=== PATIENT | male | born 1980 | race Caucasian/White ===

== ENCOUNTER 2020-08-06 17:12 | Outpatient (REF) | payer BC, SELFPAY | END 2020-08-06 17:13 | disposition home or self-care (01) | LOC: HO.LAB 17:12 | PROVIDERS: Visit Provider Internal Medicine | DX: Z20.822 Contact with and (suspected) exposure to COVID-19 (principal) | CPT/HCPCS: 36415; C9803; U0003 ==

== ENCOUNTER 2021-01-01 20:57 | Emergency (ER) | payer BC, SELFPAY ==
--- NOTE | ~2021-01-01 | XR_ITS ---
Indication: Pain, swelling EXAMINATION: Left foot, left ankle. Findings; 3 views left foot. There is flexion at the level of the fifth MTP joint which limits evaluation here. Subluxation at the MTP joint of course cannot be excluded given the appearance. No underlying fracture is identified. 2 detail views of the left ankle demonstrate significant spurring at the insertion of the Achilles. Mild spurring at the insertion of the plantar aponeuroses. There is no fracture or dislocation at the level of the ankle joint. The mortise is grossly intact. XR/XR foot LT min 3V IMPRESSION: Flexion at the level of the fifth MTP joint. An element of subluxation here cannot be excluded. Correlation needs to be made clinically. No obvious fracture. No fracture or dislocation of level the ankle. Significant spurring at the insertion of the Achilles.
--- NOTE | ~2021-01-01 | XR_ITS ---
Indication: Pain, swelling EXAMINATION: Left foot, left ankle. Findings; 3 views left foot. There is flexion at the level of the fifth MTP joint which limits evaluation here. Subluxation at the MTP joint of course cannot be excluded given the appearance. No underlying fracture is identified. 2 detail views of the left ankle demonstrate significant spurring at the insertion of the Achilles. Mild spurring at the insertion of the plantar aponeuroses. There is no fracture or dislocation at the level of the ankle joint. The mortise is grossly intact. XR/XR ankle LT min 3V IMPRESSION: Flexion at the level of the fifth MTP joint. An element of subluxation here cannot be excluded. Correlation needs to be made clinically. No obvious fracture. No fracture or dislocation of level the ankle. Significant spurring at the insertion of the Achilles.
[2021-01-01 21:23] VITALS: BP 122/77; PULSE 79; RESP 18; TEMP 36.6; O2SAT 99; BMI 28.5
--- NOTE | 2021-01-01 23:02 | ED_ITS ---
HPI - Extremity Injury (Lower) General Chief Complaint: General Medical Stated Complaint: Heel pain Time Seen by Provider: 01/01/21 22:59 Source: patient Mode of arrival: ambulatory Limitations: no limitations History of Present Illness HPI Narrative: Patient complaining of left ankle pain and swelling for last 1 mo nth does not know any injury lately becoming more ecchymotic and more painful Related Data Previous Rx's Medication Instructions Recorded ibuprofen 600 mg PO Q6H PRN #20 tab 01/01/21 Allergies Allergy/AdvReac Type Severity Reaction Status Date / Time No Known Allergies Allergy Verified 01/01/21 21:23 Review of Systems Review of Systems: Yes all other systems are reviewed and are negative [facility] Past Medical History Medical History No active medical problems Social History Social History Advance Directives: No Advance Directives Information Provided: No Physical Exam Vital Signs: Vital Signs: Last Vital Signs Temp 97.9 F 01/01/21 21:23 Pulse 79 01/01/21 21:23 Resp 18 01/01/21 21:23 BP 122/77 01/01/21 21:23 Pulse Ox 99 01/01/21 21:23 Body Mass Index 28.5 Extrem: Ankle/foot/toe images: 1. Soft tissue swelling with ecchymosis tender to touch good range of movement no deformity MDM - Extremity Injury (Lower) MDM Narrative Medical decision making narrative: Patient clinically left ankle sprain likely happen at work x-ray negative David wrap applied ibuprofen was given Discharge Plan Discharge Clinical Impression: Left ankle sprain Patient Disposition: Home, Self-Care Instructions: Ankle Sprain (ED) Additional Instructions: Rest to left ankle do not stand for long hours Apply David wrap take ibuprofen for pain Prescriptions: New ibuprofen 600 mg tablet 600 mg PO Q6H PRN (Reason: pain) Qty: 20 RF: 0 Stand Alone Forms: Work/School Release Interventions: ED Discharge Assessment Last Done: 01/01/21 23:29 Discharge Date/Time: 01/01/21 23:42
[2021-01-01] MEDS: Ibuprofen 600 MG TABLET PO (23:29)
== END 2021-01-01 23:42 | disposition home or self-care (01) ==
PROVIDERS: Emergency Provider Internal Medicine; PCP Internal Medicine Geriatric Medicine
DX: S93.402A Sprain of unspecified ligament of left ankle, initial encounter (principal); X58.XXXA Exposure to other specified factors, initial encounter; Y93.9 Activity, unspecified; Y92.9 Unspecified place or not applicable; Y99.9 Unspecified external cause status
CPT/HCPCS: 73610; 73630; 99283; 99284

== ENCOUNTER 2021-01-06 20:57 | Inpatient (IN) | payer BC, SELFPAY ==
--- NOTE | ~2021-01-06 | US_ITS ---
EXAMINATION: PENILE ULTRASOUND. CLINICAL INFORMATION: Bruising of the penis. COMPARISON: None TECHNIQUE: Grayscale and color Doppler exam performed. FINDINGS: Defects seen on the left side of the penile shaft with complex solid masslike area extruded through the defect measuring 3.1 x 1.8 x 2.2 cm. This segment of tissue is avascular on Doppler. US/US penile IMPRESSION: Defect left penile shaft with extruded soft tissue there is a vascular through the defect.
[2021-01-06 21:03] VITALS: BP 131/86; PULSE 78; RESP 16; TEMP 36.4; O2SAT 99; BMI 28.5
[2021-01-06 21:30] LABS: Appearance Urine CLEAR; Color Urine YELLOW; Glucose Urine UA NEG (NEG); Leukocyte Esterase Urine NEG (NEG); Nitrite Urine NEG (NEG); Specific Gravity - Urine >= 1.030 (1.005-1.025); Urine Blood TRACE (NEG); Urine Ketones NEG (NEG); Urine Protein NEG (NEG-TRACE)
[2021-01-06 21:36] LABS: Bacteria Urine TRACE /LPF; Mucus Urine TRACE /LPF; RBC Urine 0-2 /HPF (0); WBC Urine 0 /HPF (0-4)
--- NOTE | 2021-01-06 22:25 | ED_ITS ---
HPI - Male Genitourinary General Chief complaint: Urogenital-Male Stated complaint: ?STD Source: patient Mode of arrival: ambulatory Limitations: language barrier History of Present Illness HPI Narrative: 40-year-old male presents with penile injury after sexual intercourse. Stated that he felt a pop, erection rapidly decrease, and had a bruising and swelling to the left side of the base of his penis and penile shaft. He does not report any testicular pain however does have some inguinal pain. MD Complaint: genital injury Onset (ago): hour(s) ( 5:00 p.m.) Duration: constant Location: penis Radiation: left inguinal region Severity: moderate Severity scale (1-10): 7 Quality: aching Relieving factors: none Exacerbating factors: palpation and movement Associated symptoms: Reports denies other symptoms Related Data Sexually active: Yes Previous Rx's Medication Instructions Recorded ibuprofen 600 mg PO Q6H PRN #20 tab 01/01/21 Allergies Allergy/AdvReac Type Severity Reaction Status Date / Time No Known Allergies Allergy Verified 01/06/21 21:03 Review of Systems Review of Systems: Constitutional: No Fever, No Chills ENT/Mouth: No Ear Pain, No Hoarseness, No sore throat Eyes: No Eye Pain, No Swelling, No Redness, No Foreign Body Cardiovascular: No Chest Pain, No SOB Respiratory: No Cough, No Dyspnea Gastrointestinal: No Nausea, No Vomiting, No Diarrhea, No abdominal Pain Genitourinary: No Dysuria, No Hematuria Musculoskeletal: positive penile pain, No Myalgias, No Joint Swelling Skin: No Skin lacerations, No rash Neuro: No Weakness, No Numbness, No Paresthesias, No Loss of Consciousness, No Dizziness, No Headache Psych: No Anxiety/Panic, No Depression Heme/Lymph: no easy bruising, no Lymphadenopathy Endocrine: No Polyuria, No Polydipsia Yes all other systems are reviewed and are negative [facility] Past Medical History Attestation statement: The following information was validated with the patient. Source: old records reviewed Medical History No active medical problems Physical Exam Vital Signs: Vital Signs: Last Vital Signs Temp 97.4 F 01/07/21 01:58 Pulse 78 01/07/21 02:08 Resp 18 01/07/21 02:08 BP 110/62 01/07/21 02:08 Pulse Ox 98 01/07/21 02:08 Body Mass Index 28.5 Appearance: Alert. Oriented X3. No acute distress. Eyes: Pupils equal, round and reactive to light. ENT: Pharynx normal. Neck: Normal inspection. Neck supple. CVS: Normal heart rate and rhythm. Pulses normal. Respiratory: No respiratory distress. Breath sounds normal. Abdomen: Soft and nontender. Skin: Skin warm and dry. Normal skin color. Normal skin turgor. genitourinary: Positive bruising to the dorsal aspect of the penile shaft, swelling to the left side of the base of the penis. Extremities: No lower extremity edema. Neuro: No motor deficit. No sensory deficit. : Other: Course Course Course Narrative: 40-year-old male presents with a suspected penile fracture. Discussion with Dr. Heath, on-call Urology. Will prepare for OR, order labs, EKG. Last known meal 11:00 a.m. this morning. Ultrasound indicates penile fracture. Patient will be prepped for OR. Dr. Heath at bedside. Consultations Consultation #1: eddie Time: 22:56 MDM - Male Genitourinary MDM Narrative Medical decision making narrative: Penile fracture Medical Records Attestation: I reviewed the patient's medical records. Lab Data Attestation: I reviewed the patient's lab results. Result diagrams: 01/06/21 23:51 01/06/21 23:51 Labs: Lab Results 01/06/21 01/06/21 01/06/21 Range/Units 21:17 23:51 23:51 WBC 10.9 H (4.8-10.8) X10*3/uL RBC 5.52 (4.60-5.80) X10*6/uL Hgb 15.4 (14.0-18.0) g/dl Hct 45.1 (42-52) % MCV 81.7 (80-98) fL MCH 27.9 (27.0-33.0) pg MCHC 34.1 (31.0-36.0) g/dl RDW 14.6 (11.0-16.0) % Plt Count 325 (160-400) X10*3/uL MPV 10.4 (9.4-12.4) fL Immature Gran % (Auto) 0.5 H (0.0-0.4) % Neut % (Auto) 68.5 (45-73) % Lymph % (Auto) 22.7 (20-40) % [place] % (Auto) 6.7 (2-11) % Eos % (Auto) 1.4 (0-4) % Baso % (Auto) 0.2 (0-2) % Lymph # (Auto) 2.5 (1.2-4.9) X10*3/uL [place] # (Auto) 0.7 (0.1-1.2) X10*3/uL Eos # (Auto) 0.2 (0.0-0.4) X10*3/uL Baso # (Auto) 0.0 (0.0-0.2) X10*3/uL Abs Immat Gran (auto) 0.05 H (0.00-0.03) X10*3/uL Absolute Neuts (auto) 7.5 (2.0-8.3) X10*3/uL Absolute Nucleated RBC 0.000 (0.0-0.012) X10*3/uL Nucleated RBC % (auto) 0.0 (0.0-0.2) /100WBC PT 11.4 (10.8-13.0) SEC INR 1.0 (0.9-1.1) APTT 38.9 H (24.1-38.0) SEC Sodium (135-145) mmol/L Potassium (3.3-5.1) mmol/L Chloride (96-108) mmol/L Carbon Dioxide (22-29) mmol/L Anion Gap (12-20) BUN (9-16) mg/dL Creatinine (0.5-1.4) mg/dL Estim Creat Clear Calc Estimated GFR Random Glucose (60-115) mg/dL Calcium (8.4-10.2) mg/dL Urine Color YELLOW Urine Appearance CLEAR Urine pH 6.0 (5.0-8.0) Ur Specific [place] >= 1.030 H (1.005-1.025) Urine Protein NEG (NEG-TRACE) MG/DL Urine Glucose (UA) NEG (NEG) MG/DL Urine Ketones NEG (NEG) MG/DL Urine Blood TRACE (NEG) Urine Nitrite NEG (NEG) Ur Leukocyte Esterase NEG (NEG) Urine RBC 0-2 (0) /HPF Urine WBC 0 (0-4) /HPF Ur Squamous Epith Cells NONE /LPF Urine Bacteria TRACE /LPF Urine Mucus TRACE /LPF 01/06/21 Range/Units 23:51 WBC (4.8-10.8) X10*3/uL RBC (4.60-5.80) X10*6/uL Hgb (14.0-18.0) g/dl Hct (42-52) % MCV (80-98) fL MCH (27.0-33.0) pg MCHC (31.0-36.0) g/dl RDW (11.0-16.0) % Plt Count (160-400) X10*3/uL MPV (9.4-12.4) fL Immature Gran % (Auto) (0.0-0.4) % Neut % (Auto) (45-73) % Lymph % (Auto) (20-40) % [place] % (Auto) (2-11) % Eos % (Auto) (0-4) % Baso % (Auto) (0-2) % Lymph # (Auto) (1.2-4.9) X10*3/uL [place] # (Auto) (0.1-1.2) X10*3/uL Eos # (Auto) (0.0-0.4) X10*3/uL Baso # (Auto) (0.0-0.2) X10*3/uL Abs Immat Gran (auto) (0.00-0.03) X10*3/uL Absolute Neuts (auto) (2.0-8.3) X10*3/uL Absolute Nucleated RBC (0.0-0.012) X10*3/uL Nucleated RBC % (auto) (0.0-0.2) /100WBC PT (10.8-13.0) SEC INR (0.9-1.1) APTT (24.1-38.0) SEC Sodium 140 (135-145) mmol/L Potassium 4.1 (3.3-5.1) mmol/L Chloride 106 (96-108) mmol/L Carbon Dioxide 26 (22-29) mmol/L Anion Gap 12 (12-20) BUN 17 H (9-16) mg/dL Creatinine 0.80 (0.5-1.4) mg/dL Estim Creat Clear Calc 146.9 Estimated GFR > 60 Random Glucose 89 (60-115) mg/dL Calcium 9.0 (8.4-10.2) mg/dL Urine Color Urine Appearance Urine pH (5.0-8.0) Ur Specific [place] (1.005-1.025) Urine Protein (NEG-TRACE) MG/DL Urine Glucose (UA) (NEG) MG/DL Urine Ketones (NEG) MG/DL Urine Blood (NEG) Urine Nitrite (NEG) Ur Leukocyte Esterase (NEG) Urine RBC (0) /HPF Urine WBC (0-4) /HPF Ur Squamous Epith Cells /LPF Urine Bacteria /LPF Urine Mucus /LPF Imaging Data penile ultrasound: Attestation: I personally reviewed and interpreted this imaging study as follows: Radiologist's impression: Dr. Heath at bedside for ultrasound, positive for tunica involvement consistent with penile fracture. ECG Data Attestation: I personally reviewed and interpreted this ECG as follows: ECG interpretation date: 01/06/21 ECG interpretation time: 23:38 Prior ECG tracings: not available for review Interpretation: Normal sinus rhythm Possible Left atrial enlargement Borderline ECG No previous ECGs available Vent. rate 66 BPM UT interval 136 ms QRS duration 86 ms QT/QTc 388/406 ms P-R-T axes 46 46 27 Discharge Plan Discharge Clinical Impression: Penile fracture Patient Disposition: Admitted As Inpatient Interventions: Admission Worksheet (ED) Last Done: 01/07/21 01:46 Discharge Date/Time: 01/07/21 01:49
--- NOTE | 2021-01-06 22:54 | PC.NURSE ---
DR. OLIVAREZ IN ROOM TO ASSESSES PT WITH TYLER FENTON.
--- NOTE | 2021-01-06 23:26 | ECG_ITS ---
Test Reason : PRE OP Blood Pressure : / mmHG Vent. Rate : 066 BPM Atrial Rate : 066 BPM P-R Int : 136 ms QRS Dur : 086 ms QT Int : 388 ms P-R-T Axes : 046 046 027 degrees QTc Int : 406 ms Normal sinus rhythm Possible Left atrial enlargement Borderline ECG No previous ECGs available Referred By: Hanna Bell Electronically Signed By:BENJA MENDEZ MD
[2021-01-06 23:55] LABS: MANUAL DIFF FLAG NO
[2021-01-06 23:58] LABS: Basophils Percent Auto 0.2 % (0-2); Eosinophils Absolute Auto 0.2 X10*3/uL (0.0-0.4); Eosinophils Percent Auto 1.4 % (0-4); Hematocrit 45.1 % (42-52); Hemoglobin 15.4 g/dl (14.0-18.0); Imm Gran Abs Auto 0.05 X10*3/uL (0.00-0.03); Imm Gran Pct Auto 0.5 % (0.0-0.4); Lymphocytes Absolute Auto 2.5 X10*3/uL (1.2-4.9); Lymphocytes Percent Auto 22.7 % (20-40); Mean Corpuscular HGB Conc 34.1 g/dl (31.0-36.0); Mean Corpuscular Hemoglobin 27.9 pg (27.0-33.0); Mean Corpuscular Volume 81.7 fL (80-98); Mean Platelet Volume 10.4 fL (9.4-12.4); Monocytes Absolute Auto 0.7 X10*3/uL (0.1-1.2); Monocytes Percent Auto 6.7 % (2-11); Neutrophils Absolute Auto 7.5 X10*3/uL (2.0-8.3); Neutrophils Percent Auto 68.5 % (45-73); Platelet Count 325 X10*3/uL (160-400); Red Blood Count 5.52 X10*6/uL (4.60-5.80); Red Cell Distribution Width 14.6 % (11.0-16.0); White Blood Count 10.9 X10*3/uL (4.8-10.8)
[2021-01-07] VITALS (10 sets, daily range): BP systolic 108–140; BP diastolic 62–81; PULSE 68–80; RESP 16–18; TEMP 36.3–37; O2SAT 97–100
[2021-01-07 00:09] LABS: Prothrombin Time 11.4 SEC (10.8-13.0)
[2021-01-07 00:12] LABS: Partial Thromboplastin Time 38.9 SEC (24.1-38.0)
--- NOTE | 2021-01-07 00:17 | PM.UROCN ---
History of Present Illness Consult details Consult date: 01/07/21 Narrative: 40-year-old Iranian-speaking male. During coitus late this afternoon a snapping sound was noted. immediate pain in penis. Accompanied with ecchymosis and swelling. Discomfort when placing on boxer shorts. Came to emergency room. Clinically appers to have a penile fracture. The swelling appears to be sent in to what the left base of the penis. ultrasound confirms small rent in the tunic. Requires operative exploration and repair. Major risk is persistent erectile dysfunction following healing. Review of Systems Constitutional: Constitutional: Denies chills and Denies fever(s) Cardiovascular: Cardiovascular: Reports no additional cardiovascular complaints and Denies syncope Respiratory: Respiratory: Denies cough Gastrointestinal: Gastrointestinal: Denies abdominal pain and Denies heartburn Genitourinary: Genitourinary: Reports as per HPI and Denies change in libido Neurologic: Denies syncope Psychiatric: Psychiatric: Denies change in libido Endocrine: Endocrine: Denies change in libido [facility] Past Medical History Medical History No active medical problems Social History Social History Advance Directives: No Advance Directives Information Provided: No Meds Allergies Allergy/AdvReac Type Severity Reaction Status Date / Time No Known Allergies Allergy Verified 01/06/21 21:03 Physical Exam Vital Signs: Vital Signs: Last Vital Signs Temp 97.6 F 01/06/21 21:03 Pulse 78 01/06/21 21:03 Resp 16 01/06/21 21:03 BP 131/86 01/06/21 21:03 Pulse Ox 99 01/06/21 21:03 Body Mass Index 28.5 Const: General: cooperative, healthy appearing, comfortable and no acute distress Orientation/consciousness: patient oriented x3 HENMT: Face and sinus: Yes normal facial exam Mouth: moist mucous membranes Neck: Neck: Yes normal visual inspection, Yes full ROM and Yes trachea midline Chest: Chest palpation & inspection: normal inspection of the chest Resp: Effort & Inspection: normal respiratory effort, able to speak in complete sentences and no respiratory distress GI: Inspection: Yes normal to inspection Rectal Exam - Male: Yes normal sphincter tone and Yes prostate normal : Male General Exam: Yes normal external exam Penis: uncircumcised, ecchymosis and Localized penile swelling present Meatus: meatus normal Scrotum: scrotum normal Testes: Testes normal Back/Spine/Pelvis: Cervical Spine: normal cervical lordosis Thoracic/Lumbar Spine: thoracic and lumbar spine normal to inspection Skin: General skin exam: no rashes or lesions noted Neuro: General: patient oriented x3, gait normal, tone normal and moves all extremities Extrem: General: Yes normal to inspection and Yes capillary refill normal Results Labs Result diagrams: 01/06/21 23:51 01/06/21 23:51 Labs: Abnormal lab results 01/06/21 01/06/21 01/06/21 Range/Units 21:17 23:51 23:51 WBC 10.9 H (4.8-10.8) X10*3/uL Immature Gran % (Auto) 0.5 H (0.0-0.4) % Abs Immat Gran (auto) 0.05 H (0.00-0.03) X10*3/uL APTT 38.9 H (24.1-38.0) SEC Ur Specific [place] >= 1.030 H (1.005-1.025) Short CBC 01/06/21 Range/Units 23:51 WBC 10.9 H (4.8-10.8) X10*3/uL Hgb 15.4 (14.0-18.0) g/dl Hct 45.1 (42-52) % Plt Count 325 (160-400) X10*3/uL Urine 01/06/21 Range/Units 21:17 Urine Color YELLOW Urine Appearance CLEAR Urine pH 6.0 (5.0-8.0) Ur Specific [place] >= 1.030 H (1.005-1.025) Urine Protein NEG (NEG-TRACE) MG/DL Urine Glucose (UA) NEG (NEG) MG/DL All other labs normal. Assessment and Plan (1) Penile fracture: Status: Acute Penile fracture plan for operative degloving and exploration with repair of ruptured tunica major considerations erectile dysfunction Procedures Date of Service Date of Service: 01/07/21
--- NOTE | 2021-01-07 00:18 | HO.ANESPROP2 ---
[facility] Active Problems Active Problems: All Active Problems (Updated 01/07/21 @ 00:17 by Cecilio Heath MD) Penile fracture (Acute) Past Medical History Medical History No active medical problems Social History Social History Advance Directives: No Advance Directives Information Provided: No Meds Allergies Allergy/AdvReac Type Severity Reaction Status Date / Time No Known Allergies Allergy Verified 01/06/21 21:03 Exam Exam Date and Time: January 07, 2021 0018 Height,Weight and Vital Signs: Height 6 ft Weight 95.254 kg Last Vital Signs Temp 97.6 F 01/06/21 21:03 Pulse 78 01/06/21 21:03 Resp 16 01/06/21 21:03 BP 131/86 01/06/21 21:03 Pulse Ox 99 01/06/21 21:03 Pertinent Lab Results Pertinent Lab Results: Laboratory Tests 01/06/21 01/06/21 01/06/21 21:17 23:51 23:51 WBC 10.9 H RBC 5.52 Hgb 15.4 Hct 45.1 MCV 81.7 MCH 27.9 MCHC 34.1 RDW 14.6 Plt Count 325 MPV 10.4 Immature Gran % (Auto) 0.5 H Neut % (Auto) 68.5 Lymph % (Auto) 22.7 [place] % (Auto) 6.7 Eos % (Auto) 1.4 Baso % (Auto) 0.2 Lymph # (Auto) 2.5 [place] # (Auto) 0.7 Eos # (Auto) 0.2 Baso # (Auto) 0.0 Abs Immat Gran (auto) 0.05 H Absolute Neuts (auto) 7.5 Absolute Nucleated RBC 0.000 Nucleated RBC % (auto) 0.0 PT 11.4 INR 1.0 APTT 38.9 H Urine Color YELLOW Urine Appearance CLEAR Urine pH 6.0 Ur Specific [place] >= 1.030 H Urine Protein NEG Urine Glucose (UA) NEG Urine Ketones NEG Urine Blood TRACE Urine Nitrite NEG Ur Leukocyte Esterase NEG Urine RBC 0-2 Urine WBC 0 Ur Squamous Epith Cells NONE Urine Bacteria TRACE Urine Mucus TRACE Airway Mallampati Class: II TM Dist: >3cm Neck ROM: Full Loose/Missing/Broken Teeth: No Heart: RRR Lungs: CTA Assessment and Plan Assessment Anesthesia Assessment: Anesthesia Plan Discussed and Chart Reviewed Final Anesthetic Review NPO: Yes ASA Class: I and Emergency Final Preanesthetic Review: No Changes in Pt Med Stat, Meds/Allgs Chart Reviewed, Consent Obtained/Reviewed and Anes Risks/Benef Reviewed Patient Risk: Low Procedure Risk: Low Anesthetic Plan Anesthetic Plan: GA Disposition: Standard PACU
[2021-01-07 00:27] LABS: Anion Gap 12 (12-20); Blood Urea Nitrogen 17 mg/dL (9-16); Carbon Dioxide 26 mmol/L (22-29); Chloride 106 mmol/L (96-108); Creatinine Clr Calc Pharmacy 146.9; Estimated Glomerular Filt Rate > 60; Glucose Random 89 mg/dL (60-115); Potassium 4.1 mmol/L (3.3-5.1); Sodium 140 mmol/L (135-145)
--- NOTE | 2021-01-07 01:40 | PC.NURSE ---
PT WAS TAKEN TO US AND WHEN RETURNED DR. ALFARO AT BEDSIDE TO SIGN CONSENT FOR SURGERY FORM. PT TAKEN TO SURGERY BY W/C HAD SHIFTMAN WITH TO EXPLAIN SURGERY TO PT.
--- NOTE | 2021-01-07 02:00 | P.OP_ITS ---
Operative Note Operative Note Date of Service: 01/07/21 Narrative: PreOperative Diagnosis: Penile fracture Post Operative Diagnosis: penile fracture Procedure: repair of penile fracture Surgeon: Dr Cecilio Heath Anesthesia: general Indications for procedure: this is a 4-year-old male. He heard a loud pop during intercourse. While see had minimal pain he then developed ecchymosis with hematoma at the shaft of his penis. Ultrasound shows a rent in the tunica. Recommendation for operative exploration and repair. He is aware the main associated event is penile cur vature with erectile dysfunction. Procedure: After informed consent was verified the patient was brought to the operating room and placed in a supine position. Anesthesia was administered per protocol. the patient was prepped and draped in sterile fashion. Safety pause time-out was observed. Antibiotics have been given. Looking at the penis was clear there was significant bruising to the left ventral surface of the penis towards the penoscrotal junction. Decision was made made to proceed with the penoscrotal incision in order to access the base of the penis. A penile scrotal incision was made approximately 2-1/2 inches long. For dissection was performed through tissue that was clearly part of hematoma. Gradually as we performed our dissection we came across an area of bleeding. We divided the tissue around to give us exposure and found that there was a large left transverse rent in the tunica. We tagged each side with a 3-0 Vicryl suture in elevated the tear. We then repaired the tear with 5 interrupted 3-0 Vicryl sutures. This led to control of the bleeding and significant decrease penile swelling. Once the bleeding was controlled we then closed the layers of the dissection was the 3-0 Vicryl. Skin was reapproximated with a 4-0 Monocryl. Dressing was applied using Dermabond. He tolerated procedure well was extubated in operating room transferred in stable condition to the recovery area. Pathology: [] Drains: []
[2021-01-07 02:52] LABS: COVID-19 Test Negative (Negative); IDNOW Serial# 9DD0AD1C
[2021-01-07] MEDS: oxyCODONE HCl Immed Release 5 MG TABLET PO (04:11)
--- NOTE | 2021-01-07 04:28 | PC.NURSE ---
Pt to [facility] room 457 from pacu at 0345 post repair of penile fracture. Pt is A&O x3. surgical site at base of penis with surgical glue. No bleeding. ice pack to site. Vital signs stable. Pt c/o 410 pain and received oxycodone 5 mg po. Has not voided as of yet and is aware it is important and we will be monitoring him for this. No bladder distention noted. No urge to void noted.
--- NOTE | 2021-01-07 06:22 | PC.NURSE ---
Pt received good effect from pain with oxycodone. Voided 1000 ml in urinol without difficulty.
[2021-01-07 08:29] LABS: CT PCR NOT DETECTED (Not Detect.); NG PCR NOT DETECTED (Not Detect.)
--- NOTE | 2021-01-07 09:11 | MHC.CM.PN ---
Addendum entered by Linda Nichole 01/07/21 13:08: PT CLEARED TO DC HOME TODAY WITH NO SERVICES. CAR OUTSIDE Original Note: CM MET WITH PT WHO REPORTS HE LIVES ALONE, WORKS AND DRIVES. PT IS FULLY INDEPENDENT, HAS NO DME AND NO SERVICES. PT DOES NOT HAVE A HCP AND DECLINES TO COMPLETE ONE TODAY. PT CONFIRMS HIS PCP IS CHRISTIANO COOPER. CURRENT DC PLAN IS HOME WITH NO SERVICES PT WILL DRIVE HIMSELF HOME, CAR IN LOT
--- NOTE | 2021-01-07 13:03 | P.PNUR_ITS ---
Subjective Subjective Date of Service: 01/07/21 Interval history: swelling significantly reduced minimal pain clear for discharge today follow-up in 6 weeks Physical Exam Vital Signs: Vital Signs: Last Vital Signs Temp 98.2 F 01/07/21 11:43 Pulse 77 01/07/21 11:43 Resp 16 01/07/21 11:43 BP 120/66 01/07/21 11:43 Pulse Ox 98 01/07/21 11:43 Body Mass Index 28.5 Const: General: cooperative, healthy appearing, comfortable and no acute distress Orientation/consciousness: patient oriented x3 HENMT: Face and sinus: Yes normal facial exam Mouth: moist mucous membranes Neck: Neck: Yes normal visual inspection, Yes full ROM and Yes trachea midline Chest: Chest palpation & inspection: normal inspection of the chest Resp: Effort & Inspection: normal respiratory effort, able to speak in complete sentences and no respiratory distress GI: Inspection: Yes normal to inspection Back/Spine/Pelvis: Cervical Spine: normal cervical lordosis Thoracic/Lumbar Spine: thoracic and lumbar spine normal to inspection Skin: General skin exam: no rashes or lesions noted Neuro: General: patient oriented x3, gait normal, tone normal and moves all extremities Extrem: General: Yes normal to inspection and Yes capillary refill normal Urology Results Labs CBC & Chem 7: 01/06/21 23:51 01/06/21 23:51 Labs: Laboratory Results - last 24 hr 01/06/21 01/06/21 01/06/21 21:17 21:17 23:51 WBC 10.9 H RBC 5.52 Hgb 15.4 Hct 45.1 MCV 81.7 MCH 27.9 MCHC 34.1 RDW 14.6 Plt Count 325 MPV 10.4 Immature Gran % (Auto) 0.5 H Neut % (Auto) 68.5 Lymph % (Auto) 22.7 [place] % (Auto) 6.7 Eos % (Auto) 1.4 Baso % (Auto) 0.2 Lymph # (Auto) 2.5 [place] # (Auto) 0.7 Eos # (Auto) 0.2 Baso # (Auto) 0.0 Abs Immat Gran (auto) 0.05 H Absolute Neuts (auto) 7.5 Absolute Nucleated RBC 0.000 Nucleated RBC % (auto) 0.0 PT INR APTT Sodium Potassium Chloride Carbon Dioxide Anion Gap BUN Creatinine Estim Creat Clear Calc Estimated GFR Random Glucose Calcium Urine Color YELLOW Urine Appearance CLEAR Urine pH 6.0 Ur Specific [place] >= 1.030 H Urine Protein NEG Urine Glucose (UA) NEG Urine Ketones NEG Urine Blood TRACE Urine Nitrite NEG Ur Leukocyte Esterase NEG Urine RBC 0-2 Urine WBC 0 Ur Squamous Epith Cells NONE Urine Bacteria TRACE Urine Mucus TRACE Chlam trachomat DNA PCR NOT DETECTED COVID-19 ([facility]) COVID-19 Clin Com N.gonorrhoeae DNA (PCR) NOT DETECTED 01/06/21 01/06/21 01/07/21 23:51 23:51 02:30 WBC RBC Hgb Hct MCV MCH MCHC RDW Plt Count MPV Immature Gran % (Auto) Neut % (Auto) Lymph % (Auto) [place] % (Auto) Eos % (Auto) Baso % (Auto) Lymph # (Auto) [place] # (Auto) Eos # (Auto) Baso # (Auto) Abs Immat Gran (auto) Absolute Neuts (auto) Absolute Nucleated RBC Nucleated RBC % (auto) PT 11.4 INR 1.0 APTT 38.9 H Sodium 140 Potassium 4.1 Chloride 106 Carbon Dioxide 26 Anion Gap 12 BUN 17 H Creatinine 0.80 Estim Creat Clear Calc 146.9 Estimated GFR > 60 Random Glucose 89 Calcium 9.0 Urine Color Urine Appearance Urine pH Ur Specific [place] Urine Protein Urine Glucose (UA) Urine Ketones Urine Blood Urine Nitrite Ur Leukocyte Esterase Urine RBC Urine WBC Ur Squamous Epith Cells Urine Bacteria Urine Mucus Chlam trachomat DNA PCR COVID-19 ([facility]) Negative COVID-19 Clin Com See Note N.gonorrhoeae DNA (PCR) Progress Note: A&P Assessment and plan (1) Penile fracture: Status: Acute Assessment and Plan: 6 week follow-up Fall Risk Details Current Medications: Current Medications Generic Name Dose Route Start Last Admin Trade Name Freq PRN Reason Stop Dose Admin Acetaminophen 650 mg 01/07/21 00:22 Acetaminophen 325 Mg Tablet PO ONCE PRN Pain, Mild (Pain Scale 1-3) Albuterol Sulfate 2.5 mg 01/07/21 00:22 Albuterol Sulfate (0.083%) 2.5 Mg/3 Ml Vial.Neb INHALE ONCE PRN Wheezing Fentanyl 25 mcg 01/07/21 00:22 Fentanyl Citrate/Pf 100 Mcg/2 Ml Vial IVPUSH Q5M PRN Pain, Moderate (Pain Scale 4-6 Hydromorphone HCl 0.5 mg 01/07/21 00:22 Hydromorphone Hcl 0.5 Mg/0.5 Ml Syringe IVPUSH Q5M PRN Pain, Severe (Pain Scale 7-10) Promethazine HCl 12.5 mg/ 50.5 mls @ 202 mls/hr 01/07/21 00:22 Sodium Chloride IV ONCE PRN Nausea and Vomiting Ondansetron HCl 4 mg 01/07/21 00:22 Ondansetron Hcl 4 Mg/2 Ml Vial IVPUSH ONCE PRN Nausea and Vomiting Oxycodone HCl 10 mg 01/07/21 00:22 Oxycodone Hcl Immed Release 5 Mg Tablet PO ONCE PRN Pain, Severe (Pain Scale 7-10) Oxycodone HCl 5 mg 01/07/21 01:57 01/07/21 04:11 Oxycodone Hcl Immed Release 5 Mg Tablet PO 5 mg Q4H PRN Administration Breakthrough Pain Oxycodone HCl 5 mg 01/07/21 01:58 Oxycodone Hcl Immed Release 5 Mg Tablet PO Q6H PRN Pain, Mild (Pain Scale 1-3) Time Spent With Patient Time: Total time spent is greater than 50% in coordination of care (as documented) at patient's floor/unit and/or counseling patient: Time with patient: 15 - 24 minutes
--- NOTE | 2021-01-07 13:05 | P.DS_ITS ---
DS: Providers Provider Date of Service: 01/07/21 Date of admission: 01/07/21 01:59 Primary care physician: Leonard Jon MD DS: Diagnosis Discharge Diagnosis (1) Penile fracture: Status: Acute DS: Medications Discharge Medications Home Medications: Previous Rx's Medication Instructions Recorded ibuprofen 600 mg PO Q6H PRN #20 tab 01/01/21 DS: Summary Hospital Course Hospital Course: admitted with question of penile fracture Operative procedure performed by Dr. Heath with 1 cm penile fracture repair Time Spent with Patient Time attestation: Total time spent providing and/or coordinating discharge services: Discharge coordination time: Less than 30 minutes Quality: Stroke Does the patient have a stroke diagnosis?: No Physical Exam Vital Signs: Vital Signs: Last Vital Signs Temp 98.2 F 01/07/21 11:43 Pulse 77 01/07/21 11:43 Resp 16 01/07/21 11:43 BP 120/66 01/07/21 11:43 Pulse Ox 98 01/07/21 11:43 Body Mass Index 28.5 DS: Data Data Completed and Pending Labs on day of discharge: Laboratory Results - last 24 hr 01/06/21 01/06/21 01/06/21 21:17 21:17 23:51 WBC 10.9 H RBC 5.52 Hgb 15.4 Hct 45.1 MCV 81.7 MCH 27.9 MCHC 34.1 RDW 14.6 Plt Count 325 MPV 10.4 Immature Gran % (Auto) 0.5 H Neut % (Auto) 68.5 Lymph % (Auto) 22.7 [place] % (Auto) 6.7 Eos % (Auto) 1.4 Baso % (Auto) 0.2 Lymph # (Auto) 2.5 [place] # (Auto) 0.7 Eos # (Auto) 0.2 Baso # (Auto) 0.0 Abs Immat Gran (auto) 0.05 H Absolute Neuts (auto) 7.5 Absolute Nucleated RBC 0.000 Nucleated RBC % (auto) 0.0 PT INR APTT Sodium Potassium Chloride Carbon Dioxide Anion Gap BUN Creatinine Estim Creat Clear Calc Estimated GFR Random Glucose Calcium Urine Color YELLOW Urine Appearance CLEAR Urine pH 6.0 Ur Specific [place] >= 1.030 H Urine Protein NEG Urine Glucose (UA) NEG Urine Ketones NEG Urine Blood TRACE Urine Nitrite NEG Ur Leukocyte Esterase NEG Urine RBC 0-2 Urine WBC 0 Ur Squamous Epith Cells NONE Urine Bacteria TRACE Urine Mucus TRACE Chlam trachomat DNA PCR NOT DETECTED COVID-19 ([facility]) COVID-19 Clin Com N.gonorrhoeae DNA (PCR) NOT DETECTED 01/06/21 01/06/21 01/07/21 23:51 23:51 02:30 WBC RBC Hgb Hct MCV MCH MCHC RDW Plt Count MPV Immature Gran % (Auto) Neut % (Auto) Lymph % (Auto) [place] % (Auto) Eos % (Auto) Baso % (Auto) Lymph # (Auto) [place] # (Auto) Eos # (Auto) Baso # (Auto) Abs Immat Gran (auto) Absolute Neuts (auto) Absolute Nucleated RBC Nucleated RBC % (auto) PT 11.4 INR 1.0 APTT 38.9 H Sodium 140 Potassium 4.1 Chloride 106 Carbon Dioxide 26 Anion Gap 12 BUN 17 H Creatinine 0.80 Estim Creat Clear Calc 146.9 Estimated GFR > 60 Random Glucose 89 Calcium 9.0 Urine Color Urine Appearance Urine pH Ur Specific [place] Urine Protein Urine Glucose (UA) Urine Ketones Urine Blood Urine Nitrite Ur Leukocyte Esterase Urine RBC Urine WBC Ur Squamous Epith Cells Urine Bacteria Urine Mucus Chlam trachomat DNA PCR COVID-19 ([facility]) Negative COVID-19 Clin Com See Note N.gonorrhoeae DNA (PCR) Discharge Plan Discharge Patient Disposition: Home, Self-Care Discharge Diagnosis: penile fracture Referrals: Name,MD Leonard [Primary Care Provider] - 1 Week Discharge Medications: Continued ibuprofen 600 mg tablet 600 mg PO Q6H PRN (Reason: pain) Qty: 20 RF: 0 Discharge Orders: Discharge Order (Routine); Ordered 01/07/21 Ordered By: Cecilio Heath Diet: advance to usual diet Activity on Discharge: no sex Stand Alone Forms: Patient Portal Discharge page Care Plan Goals: penile fracture Health Concerns: penile fracture Plan of Treatment: penile fracture Assessment: penile fracture
== END 2021-01-07 16:02 | disposition home or self-care (01) | DRG 481 ==
LOC: HO.ED 01-07 01:46 → HO.EDOVER 01-07 03:42 → HO.IMC 01-07 03:42
PROVIDERS: Nurse Practitioner Family; Admitting Provider Urology; Emergency Provider Emergency Medicine; PCP Internal Medicine Geriatric Medicine; Visit Provider Urology
PROC: 0VQS0ZZ Repair Penis, Open Approach (ICD-10-PCS; CPT 54440; principal; 2021-01-07 00:15)
DX: S39.840A Fracture of corpus cavernosum penis, initial encounter (principal); Z87.891 Personal history of nicotine dependence; X58.XXXA Exposure to other specified factors, initial encounter; Y93.89 Activity, other specified; Y92.9 Unspecified place or not applicable; Y99.9 Unspecified external cause status; Z79.1 Long term (current) use of non-steroidal anti-inflammatories (NSAID)
CPT/HCPCS: 36415; 76857; 80048; 81001; 85025; 85610; 85730; 87491; 87591; 87635; 93005; 99285; J1100; J3010

== ENCOUNTER 2021-08-12 08:19 | Outpatient (REF) | payer SELFPAY ==
[2021-08-12 08:36] LABS: COVID-19 Test Negative (Negative)
== END 2021-08-12 08:20 | disposition home or self-care (01) ==
LOC: HO.LAB 08:19
PROVIDERS: PCP Internal Medicine Geriatric Medicine; Visit Provider Internal Medicine
DX: Z20.822 Contact with and (suspected) exposure to COVID-19 (principal)
CPT/HCPCS: 86592; 86780; 87635; C9803

== ENCOUNTER 2023-06-08 13:35 | Outpatient (AMB) | payer BC, SELFPAY ==
[2023-06-08 13:46] VITALS: BP 124/82; PULSE 86; O2SAT 98; BMI 33.0
--- NOTE | 2023-06-08 13:46 | MHC.OFFVIS ---
Intake Vital Signs 06/08/23 13:46 Height 6 ft Weight 243 lb 2 oz BMI 33.0 BP 124/82 Blood Pressure Location Lt brachial Position Sitting Pulse 86 Pulse Source Pulse Oximeter Pulse Oximetry (%) 98 Oxygen Delivery Method Room Air Intake Visit Reasons: ENP-Episode Apnea/Snoring-LVM Intake Note: Pt presents to the office today for a new patient visit for episodes of apnea/snoring. Allergies No Known Allergies Allergy (Verified 06/08/23 13:46) HPI HPI Comments History of Present Illness Details 43 y/o male patient presents for new in-person visit for sleep consultation. Pt reports difficulty falling asleep and staying sleep. Pt reports he gained about 50 lb over the last 3 years ago and his sleep problem has worsened. He reports snoring, witnessed apnea spells, and gasping arousals. He has non refreshing sleep and feels tired all day. 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 Sleep questionnaire: Have you ever been diagnosed with a sleep disorder? No. Have you ever had a sleep study in the past? Yes, many years ago. Have you ever been treated for a sleep disorder? No. Do you take medications for a sleep disorder? No. Do you snore? Yes. Do you wake up gasping at night? Yes. Do you have episodes of apneas? Yes. If yes, are they witnessed? Yes, by his . Do you have episodes of nocturnal chest pain or dyspnea? Yes. Do you have difficulty initiating sleep? Yes. Do you have difficulty maintaining sleep? Yes, wakes up 3-4 times at night. Do you wake up tired? Yes. Do you have headaches upon awakening? Yes, almost every day. Do you wake up with dry mouth or throat? Yes. Do you have GERD? Yes. Do you have nocturia? No, Do you have nocturnal leg cramps? Yes. Do you have symptoms of restless legs? No. Do you act out your dreams? No. Sleep hygiene questionnaire: What is your usual sleep routine? Usual bedtime is at 11am-12 pm; Usual wake up time is at 3-4 pm. Do you take naps? No. Is your sleep environment cool, dark, and quiet? Yes. Do you exercise? No. Do you take caffeine or other stimulants? Soda. Do you use electronics in bed? No. What is your work schedule? 10 pm to 9 pm. Hypersomnolence questionnaire: Do you have daytime tiredness or fatigue? Yes. Do you easily fall asleep when inactive? Yes. Have you ever had episodes of sudden weakness? No. Have you ever had episodes of sudden weakness associated with strong emotions? No. PFSH Medical History (Updated 06/08/23 @ 15:37 by Jeremy Shaikh CNP) No active medical problems Surgical History (Updated 06/08/23 @ 14:34 by Dorita Singh MA) History of cholecystectomy Social History (Updated 06/08/23 @ 14:32 by Dorita Singh MA) Household Members: Family Housing: House Alcohol intake: current Alcohol intake frequency: a few times a week Patient Tobacco Use Status: Former Tobacco user Tobacco use type: Cigarette e-Cigarette/Vaping Use: Never Used Second Hand Smoke Exposure: No service: No Current occupational status: employed Review of Systems Const All systems reviewed & are unremarkable except as noted in HPI and below Physical Exam Vital Signs: Last Vital Signs Pulse 86 06/08/23 13:46 BP 124/82 06/08/23 13:46 Pulse Ox 98 06/08/23 13:46 Oxygen Delivery Method Room Air 06/08/23 13:46 BMI result Body Mass Index 33.0 Const General: cooperative Nutritional Appearance: obese Orientation/consciousness: patient oriented x3 Neck Neck: Yes full ROM and Yes supple Resp Effort & Inspection: normal respiratory effort and able to speak in complete sentences Neuro General: patient oriented x3, gait normal and moves all extremities Cranial nerves: Yes Bilaterally intact EOM present Cognition (Neuro): normal cognition Gait exam (Neuro): Normal gait present Motor exam (neuro): 5/5 motor strength present throughout, Pronator motor function not present and no tremor noted Psych Appearance: grossly normal Mental Status: mental status grossly normal Speech and movement: Normal speech and movement present Affect: normal affect Attitude: cooperative Assessment & Plan Assessment & Plan (1) Snoring: Code(s): R06.83 - Snoring (2) Witnessed apneic spells: Code(s): R06.81 - Apnea, not elsewhere classified (3) Excessive daytime sleepiness: Code(s): G47.19 - Other hypersomnia (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 Will f/u with pt after study to discuss results and appropriate treatment options. Sleep hygiene education provided. Wt reduction advised. May try melatonin for sleep. Pt does not want to take medication at this time. Pt to call with any worsening concerns or questions. Coding Level of Care Code New Pt Level 3 (43319) Diagnoses Snoring R06.83 Witnessed apneic spells R06.81 Excessive daytime sleepiness G47.19 Shift work sleep disorder G47.26
== END 2023-06-08 15:01 | disposition home or self-care (01) ==
PROVIDERS: PCP Internal Medicine Geriatric Medicine; Visit Provider Nurse Practitioner Family
DX: R06.83 Snoring (principal); R06.81 Apnea, not elsewhere classified; G47.19 Other hypersomnia; G47.26 Circadian rhythm sleep disorder, shift work type
CPT/HCPCS: 99203

== ENCOUNTER → 2023-06-08 13:35 | Outpatient (BNVA) | payer BC, SELFPAY | PROVIDERS: PCP Internal Medicine Geriatric Medicine; Visit Provider Nurse Practitioner Family ==